=== PATIENT | male | born 1965 | race Caucasian/White ===

== ENCOUNTER 2020-04-09 05:15 | Inpatient (IN) | payer MEDICAID, OTHER ==
[~2020-04-09] VITALS: Ht 165.1 cm; Wt 86.6 kg
[2020-04-09] MEDS ORDERED: PIPERACILLIN/TAZ 3.375G PREMIX 50 ML IV ONE (07:15)
[2020-04-09] MEDS ORDERED: VANCOMYCIN 1 G PREMIX 200 ML IV ONE (07:15)
[2020-04-09 09:23] LABS: BASOPHILS % 0.1 % (0.0-2.0); EOSINOPHILS % 0.4 % (0.0-5.0); HEMATOCRIT. 44.7 % (42.0-52.0); HEMOGLOBIN. 15.2 g/dL (14.0-18.0); LYMPHOCYTES % 24.4 % (20.0-50.0); MEAN CORPUSCULAR HEMOGLOBIN 28.6 pg (28.0-32.0); MEAN CORPUSCULAR VOLUME 84.2 fL (80.0-94.0); MEAN PLATELET VOLUME 8.4 fl (7.4-10.4); MONOCYTES % 9.4 % (2.0-8.0); NEUTROPHILS % 65.7 % (40.0-76.0); PLATELET 276 x1000/uL (130-400); RED BLOOD CELL COUNT 5.31 mill/uL (4.7-6.1); RED CELL DISTRIBUTION WIDTH 14.4 % (11.6-14.6)
[2020-04-09 09:25] LABS: CHLORIDE 107 mEq/L (98-107)
[2020-04-09 09:33] LABS: CREATINE KINASE 442 IU/L (39-308); D-DIMER 0.25 mg/L FEU (<0.50); PROTHROMBIN TIME 10.4 sec (9.6-11.0)
[2020-04-09 10:58] LABS: BG BASE EXCESS -2.5 mmol/L (-2.0-2.0); BG CARBOXYHEMOGLOBIN 0.7 % (0.5-1.5); BG DEOXYHEMOGLOBIN 6.8 % (0.0-5.0); BG FRACTION INSPIRED OXYGEN 21; BG HCO3 ACT 20.8 mmol/L (22.0-26.0); BG METHEMOGLOBIN 0.1 % (0.0-1.5); BG OXYGEN SATURATION 93.1 % (92.0-98.5); BG OXYHEMOGLOBIN 92.4 % (94.0-97.0); BG PCO2 31.8 mmHg (35.0-45.0); BG PH 7.433 (7.350-7.450); BG PO2 65.5 mmHg (75.0-100.0); BG SAMPLE SITE RIGHT RADIAL; BG TOTAL HEMOGLOBIN 14.2 g/dL (12.0-18.0); BG VENT MODE ROOM AIR
[2020-04-09 11:15] LABS: CLARITY URINE CLEAR (CLEAR); COLOR URINE DARK YELLOW (YELLOW); KETONES URINE 1+ (NEGATIVE); LEUKOCYTE ESTERASE URINE TRACE (NEGATIVE); NITRITE URINE NEGATIVE (NEGATIVE); OCCULT BLOOD URINE NEGATIVE (NEGATIVE); PH URINE 6.5 (4.5-8.0); PROTEIN URINE 1+ (NEGATIVE); SPECIFIC GRAVITY URINE 1.019 (1.005-1.030)
[2020-04-09 12:00] VITALS: BP 129/73
[2020-04-09] MEDS ORDERED: ONDANSETRON HCL 4MG/2ML INJ IV PRN (12:30)
[2020-04-09] MEDS ORDERED: POTASSIUM CHLORIDE 20MEQ TABLET SR PO NR (12:30)
[2020-04-09] MEDS ORDERED: AZITHROMYCIN 500 MG in DEXT 5% WATER 250 ML IV NR (14:00)
[2020-04-09 16:03] VITALS: BP 122/76
[2020-04-09] MEDS: CEFTRIAXONE 1 G PREMIX 50 ML IV SCH (17:47)
[2020-04-09 20:37] VITALS: BP 123/78
[2020-04-09] MEDS ORDERED: HEPARIN 5000 UNITS/ML VIAL SUBCUT SCH (21:00)
[2020-04-09] MEDS: HEPARIN 5000 UNITS/ML VIAL SUBCUT SCH (23:51)
[2020-04-10] MEDS: ACETAMINOPHEN 325MG TABLET PO PRN ×3 (00:04→20:30)
[2020-04-10 00:48] VITALS: BP 120/57
[2020-04-10 04:00] VITALS: BP 119/71
[2020-04-10 07:47] LABS: BASOPHILS % 0.2 % (0.0-2.0); EOSINOPHILS % 0.3 % (0.0-5.0); HEMATOCRIT. 42.8 % (42.0-52.0); HEMOGLOBIN. 15.2 g/dL (14.0-18.0); LYMPHOCYTES % 21.8 % (20.0-50.0); MEAN CORPUSCULAR HEMOGLOBIN 29.9 pg (28.0-32.0); MEAN CORPUSCULAR VOLUME 84.3 fL (80.0-94.0); MONOCYTES % 9.7 % (2.0-8.0); PLATELET 330 x1000/uL (130-400); RED BLOOD CELL COUNT 5.07 mill/uL (4.7-6.1); RED CELL DISTRIBUTION WIDTH 14.6 % (11.6-14.6)
[2020-04-10 08:00] VITALS: BP 117/69
[2020-04-10 08:14] LABS: CHLORIDE 104 mEq/L (98-107)
[2020-04-10] MEDS: HEPARIN 5000 UNITS/ML VIAL SUBCUT SCH (08:21)
[2020-04-10] MEDS ORDERED: GABAPENTIN 100MG CAPSULE PO PRN (10:15)
[2020-04-10] MEDS ORDERED: MORPHINE SULFATE 2 MG/ML CPJ (NOT FOR IM USE) IV PRN (11:30)
[2020-04-10] MEDS: ENOXAPARIN 100MG/ML SYR SUBCUT SCH ×2 (11:40→21:54)
[2020-04-10 12:00] VITALS: BP 120/75
[2020-04-10] MEDS: AZITHROMYCIN 250 MG in DEXT 5% WATER 250 ML IV SCH (13:12)
[2020-04-10] MEDS: GUAIFENESIN 600MG ER TABLET PO SCH ×2 (13:13→20:30)
[2020-04-10] MEDS: ALBUTEROL 6.7GM HFA INHALER ORI SCH ×3 (14:10→23:40)
[2020-04-10 16:00] VITALS: BP 125/80
[2020-04-10] MEDS: CEFTRIAXONE 1 G PREMIX 50 ML IV SCH (16:56)
[2020-04-10 20:00] VITALS: BP 137/80
[2020-04-11] VITALS: BP 114/71
[2020-04-11 04:00] VITALS: BP 114/73
[2020-04-11] MEDS: ALBUTEROL 6.7GM HFA INHALER ORI SCH ×3 (05:53→17:01)
[2020-04-11 07:30] LABS: CHLORIDE 104 mEq/L (98-107)
[2020-04-11 07:44] LABS: BASOPHILS % 0.3 % (0.0-2.0); EOSINOPHILS % 0.5 % (0.0-5.0); HEMATOCRIT. 44.5 % (42.0-52.0); HEMOGLOBIN. 15.5 g/dL (14.0-18.0); LYMPHOCYTES % 23.9 % (20.0-50.0); MEAN CORPUSCULAR HEMOGLOBIN 29.2 pg (28.0-32.0); MEAN CORPUSCULAR VOLUME 83.8 fL (80.0-94.0); MEAN PLATELET VOLUME 8.1 fl (7.4-10.4); MONOCYTES % 10.8 % (2.0-8.0); NEUTROPHILS % 64.5 % (40.0-76.0); PLATELET 383 x1000/uL (130-400); RED BLOOD CELL COUNT 5.31 mill/uL (4.7-6.1); RED CELL DISTRIBUTION WIDTH 14.6 % (11.6-14.6)
[2020-04-11 08:00] VITALS: BP_SYST 115; BP_SYST 137; BP_DIAS 78
[2020-04-11] MEDS: GUAIFENESIN 600MG ER TABLET PO SCH ×2 (08:18→19:41)
[2020-04-11] MEDS: ENOXAPARIN 100MG/ML SYR SUBCUT SCH ×2 (08:19→19:42)
[2020-04-11 12:00] VITALS: BP 130/75
[2020-04-11] MEDS ORDERED: REMDESIVIR 200 MG in SODIUM CHLORIDE 0.9% 250 ML IV SCH (13:00)
[2020-04-11] MEDS: AZITHROMYCIN 250 MG in DEXT 5% WATER 250 ML IV SCH (15:22)
[2020-04-11 16:00] VITALS: BP 133/79
[2020-04-11] MEDS: CEFTRIAXONE 1 G PREMIX 50 ML IV SCH (17:00)
[2020-04-11 19:49] VITALS: BP 119/79
[2020-04-12] VITALS (7 sets, daily range): BP systolic 111–125; BP diastolic 72–84
[2020-04-12] MEDS: ALBUTEROL 6.7GM HFA INHALER ORI SCH ×5 (00:17→23:54)
[2020-04-12 06:59] LABS: BASOPHILS % 0.2 % (0.0-2.0); EOSINOPHILS % 1.4 % (0.0-5.0); HEMATOCRIT. 45.5 % (42.0-52.0); HEMOGLOBIN. 15.8 g/dL (14.0-18.0); LYMPHOCYTES % 31.8 % (20.0-50.0); MEAN CORPUSCULAR VOLUME 83.4 fL (80.0-94.0); MEAN PLATELET VOLUME 7.7 fl (7.4-10.4); MONOCYTES % 13.8 % (2.0-8.0); NEUTROPHILS % 52.8 % (40.0-76.0); PLATELET 431 x1000/uL (130-400); RED BLOOD CELL COUNT 5.45 mill/uL (4.7-6.1); RED CELL DISTRIBUTION WIDTH 14.3 % (11.6-14.6)
[2020-04-12 07:08] LABS: CHLORIDE 106 mEq/L (98-107)
[2020-04-12] MEDS: GUAIFENESIN 600MG ER TABLET PO SCH ×2 (08:08→20:36)
[2020-04-12] MEDS: ENOXAPARIN 100MG/ML SYR SUBCUT SCH ×2 (08:08→20:37)
[2020-04-12] MEDS ORDERED: METHYLPREDNISOLONE SOD SUCC 40 MG/ML VIAL IV SCH (10:15)
[2020-04-12] MEDS: METHYLPREDNISOLONE SOD SUCC 40 MG/ML VIAL IV SCH ×2 (12:20→20:36)
[2020-04-12] MEDS: REMDESIVIR 100 MG in SODIUM CHLORIDE 0.9% 250 ML IV SCH (14:14)
[2020-04-12] MEDS: AZITHROMYCIN 250 MG in DEXT 5% WATER 250 ML IV SCH (15:46)
[2020-04-12] MEDS: CEFTRIAXONE 1 G PREMIX 50 ML IV SCH (17:50)
[2020-04-13 04:00] VITALS: BP 109/72
[2020-04-13] MEDS: ALBUTEROL 6.7GM HFA INHALER ORI SCH ×4 (04:51→23:03)
[2020-04-13 05:46] LABS: CHLORIDE 106 mEq/L (98-107)
[2020-04-13 05:48] LABS: BASOPHILS % 0.4 % (0.0-2.0); EOSINOPHILS % 0.1 % (0.0-5.0); HEMOGLOBIN. 15.5 g/dL (14.0-18.0); LYMPHOCYTES % 23.8 % (20.0-50.0); MEAN CORPUSCULAR HEMOGLOBIN 29.1 pg (28.0-32.0); MEAN CORPUSCULAR VOLUME 82.7 fL (80.0-94.0); MEAN PLATELET VOLUME 7.7 fl (7.4-10.4); NEUTROPHILS % 70.7 % (40.0-76.0); PLATELET 525 x1000/uL (130-400); RED BLOOD CELL COUNT 5.32 mill/uL (4.7-6.1)
[2020-04-13 08:00] VITALS: BP 124/85
[2020-04-13] MEDS ORDERED: AZITHROMYCIN 250 MG TABLET PO SCH (09:00)
[2020-04-13] MEDS: ENOXAPARIN 100MG/ML SYR SUBCUT SCH ×2 (09:35→20:41)
[2020-04-13] MEDS: METHYLPREDNISOLONE SOD SUCC 40 MG/ML VIAL IV SCH ×2 (09:35→20:40)
[2020-04-13] MEDS: GUAIFENESIN 600MG ER TABLET PO SCH ×2 (09:35→20:40)
[2020-04-13 12:00] VITALS: BP 117/75
[2020-04-13] MEDS: REMDESIVIR 100 MG in SODIUM CHLORIDE 0.9% 250 ML IV SCH (14:02)
[2020-04-13] MEDS: CEFTRIAXONE 1 G PREMIX 50 ML IV SCH (14:47)
[2020-04-13 16:00] VITALS: BP 123/74
[2020-04-13 20:00] VITALS: BP 120/70
[2020-04-14] VITALS: BP 125/72
[2020-04-14 04:00] VITALS: BP 100/56
[2020-04-14] MEDS: ALBUTEROL 6.7GM HFA INHALER ORI SCH ×4 (04:33→23:54)
[2020-04-14 07:35] LABS: LYMPHOCYTES % 12.7 % (20.0-50.0); MEAN CORPUSCULAR HEMOGLOBIN 28.5 pg (28.0-32.0); MEAN CORPUSCULAR VOLUME 83.6 fL (80.0-94.0); MEAN PLATELET VOLUME 8.2 fl (7.4-10.4); MONOCYTES % 5.9 % (2.0-8.0); NEUTROPHILS % 80.4 % (40.0-76.0); PLATELET 597 x1000/uL (130-400); RED BLOOD CELL COUNT 5.27 mill/uL (4.7-6.1); RED CELL DISTRIBUTION WIDTH 14.4 % (11.6-14.6)
[2020-04-14 07:53] LABS: CHLORIDE 106 mEq/L (98-107)
[2020-04-14 08:00] VITALS: BP 125/68
[2020-04-14] MEDS: METHYLPREDNISOLONE SOD SUCC 40 MG/ML VIAL IV SCH ×2 (08:43→22:58)
[2020-04-14] MEDS: GUAIFENESIN 600MG ER TABLET PO SCH ×2 (08:43→22:58)
[2020-04-14] MEDS: ENOXAPARIN 100MG/ML SYR SUBCUT SCH ×2 (08:43→22:59)
[2020-04-14 12:00] VITALS: BP 119/65
[2020-04-14] MEDS: REMDESIVIR 100 MG in SODIUM CHLORIDE 0.9% 250 ML IV SCH (12:29)
[2020-04-14 16:00] VITALS: BP 113/65
[2020-04-14] MEDS: CEFTRIAXONE 1 G PREMIX 50 ML IV SCH (16:34)
[2020-04-14 20:00] VITALS: BP 110/61
[2020-04-15] VITALS: BP 114/75
[2020-04-15 04:00] VITALS: BP 104/63
[2020-04-15 08:00] VITALS: BP 123/75
[2020-04-15] MEDS: METHYLPREDNISOLONE SOD SUCC 40 MG/ML VIAL IV SCH ×2 (08:38→22:07)
[2020-04-15] MEDS: ENOXAPARIN 100MG/ML SYR SUBCUT SCH ×2 (08:39→22:08)
[2020-04-15] MEDS: GUAIFENESIN 600MG ER TABLET PO SCH ×2 (08:39→22:07)
[2020-04-15 09:19] LABS: BASOPHILS % 1.2 % (0.0-2.0); HEMATOCRIT. 44.1 % (42.0-52.0); HEMOGLOBIN. 15.1 g/dL (14.0-18.0); LYMPHOCYTES % 17.3 % (20.0-50.0); MEAN CORPUSCULAR HEMOGLOBIN 28.8 pg (28.0-32.0); MEAN CORPUSCULAR VOLUME 84.3 fL (80.0-94.0); MONOCYTES % 8.1 % (2.0-8.0); NEUTROPHILS % 73.4 % (40.0-76.0); PLATELET 553 x1000/uL (130-400); RED BLOOD CELL COUNT 5.24 mill/uL (4.7-6.1); RED CELL DISTRIBUTION WIDTH 14.4 % (11.6-14.6)
[2020-04-15 09:29] LABS: CHLORIDE 106 mEq/L (98-107)
[2020-04-15] MEDS: ALBUTEROL 6.7GM HFA INHALER ORI SCH ×2 (11:53→18:10)
[2020-04-15 12:00] VITALS: BP 110/76
[2020-04-15] MEDS: REMDESIVIR 100 MG in SODIUM CHLORIDE 0.9% 250 ML IV SCH (12:33)
[2020-04-15 16:00] VITALS: BP 100/60
[2020-04-15 20:00] VITALS: BP 119/78
[2020-04-16] VITALS: BP 113/79
[2020-04-16] MEDS: ALBUTEROL 6.7GM HFA INHALER ORI SCH ×3 (00:19→12:48)
[2020-04-16 04:00] VITALS: BP 112/71
[2020-04-16 05:08] LABS: BASOPHILS % 0.6 % (0.0-2.0); HEMATOCRIT. 44.6 % (42.0-52.0); HEMOGLOBIN. 15.4 g/dL (14.0-18.0); LYMPHOCYTES % 14.4 % (20.0-50.0); MEAN CORPUSCULAR HEMOGLOBIN 28.9 pg (28.0-32.0); MEAN CORPUSCULAR VOLUME 83.7 fL (80.0-94.0); MEAN PLATELET VOLUME 8.1 fl (7.4-10.4); MONOCYTES % 7.9 % (2.0-8.0); NEUTROPHILS % 77.1 % (40.0-76.0); PLATELET 627 x1000/uL (130-400); RED BLOOD CELL COUNT 5.33 mill/uL (4.7-6.1); RED CELL DISTRIBUTION WIDTH 14.4 % (11.6-14.6)
[2020-04-16 05:15] LABS: CHLORIDE 105 mEq/L (98-107)
[2020-04-16 08:00] VITALS: BP 114/71
[2020-04-16] MEDS: METHYLPREDNISOLONE SOD SUCC 40 MG/ML VIAL IV SCH (08:53)
[2020-04-16] MEDS: ENOXAPARIN 100MG/ML SYR SUBCUT SCH (08:54)
[2020-04-16] MEDS: GUAIFENESIN 600MG ER TABLET PO SCH (08:54)
[2020-04-16 12:00] VITALS: BP 118/71
[2020-04-16 13:06] VITALS: BP 118/71
== END 2020-04-16 15:14 | disposition home or self-care (01) | DRG 720 ==
LOC: ER 05:15 → EDBEDREQ 07:49 → 7WST 08:08 → EDBEDREQ 08:12 → EDBEDREQSVC 08:12 → EDBEDREQTM 08:12 → ENRESERV 11:25
PROVIDERS: ADMIT Internal Medicine; ATTEND Internal Medicine
DX: A41.89 Other specified sepsis (principal); U07.1 COVID-19; J96.01 Acute respiratory failure with hypoxia; J12.89 Other viral pneumonia; E87.6 Hypokalemia; D68.69 Other thrombophilia; G89.29 Other chronic pain; R79.89 Other specified abnormal findings of blood chemistry; R74.0 Nonspecific elevation of levels of transaminase and lactic acid dehydrogenase [LDH]; R65.20 Severe sepsis without septic shock; Z79.899 Other long term (current) drug therapy
CPT/HCPCS: 36415; 36600; 71045; 80053; 81003; 82375; 82550; 82728; 82805; 82962; 83605; 83615; 83735; 83880; 84145; 84484; 85025; 85379; 85384; 86140; 87804; 93005; 99291; J0456; J0696; J1644; J1650; J2270; J2543; J2920; J3370; J7050; J7060; Q9957; U0003-CS